=== PATIENT | female | born 1955 | race African-American/Black ===

== ENCOUNTER 2017-08-18 15:46 | Emergency (ER) | payer BC ==
[~2017-08-18] VITALS: Ht 152.4 cm; Wt 91.2 kg
[~2017-08-18 15:46] MED LIST: FLEXERIL PO; IBUPROFEN 600600 M1 PO; LOTREL 10-20 M1 EACH PO; NAPROSYN500 MG PO; NORCO 5-325 TA1 EACH PO; NORVASC5 MG PO; PRINIVIL10 MG PO; ULTRAM 50MG TAB50 MG PO; VALIUM2 MG PO
[2017-08-18] MEDS ORDERED: MOBIC7.5 MG PO (16:12)
[2017-08-18] MEDS ORDERED: NORFLEX100 MG PO (16:12)
[2017-08-18 16:45] VITALS: BP 141/95
== END 2017-08-18 16:44 | disposition home or self-care (01) ==
LOC: ER 15:46
DX: S29.012A Strain of muscle and tendon of back wall of thorax, initial encounter (principal); I10 Essential (primary) hypertension; M17.0 Bilateral primary osteoarthritis of knee; M19.012 Primary osteoarthritis, left shoulder; Z88.0 Allergy status to penicillin; Z88.5 Allergy status to narcotic agent; X50.0XXA Overexertion from strenuous movement or load, initial encounter; Y93.89 Activity, other specified; Y92.89 Other specified places as the place of occurrence of the external cause; Y99.8 Other external cause status

== ENCOUNTER 2018-02-17 04:29 | Emergency (ER) | payer BC ==
[~2018-02-17] VITALS: Ht 152.4 cm; Wt 90.7 kg
--- NOTE | ~2018-02-17 | EKG ---
[place] [address] [address] [facility] [facility] [place] [address] ELECTROCARDIOGRAM REPORT Name: JOSSELYN RAMESH Room #: DEP [place]#: [id number] Admission: 02/17/18 Attend Phys: Discharge: 02/17/18 Date of : 57 Report #: [id number] THIS REPORT FOR: //name// [facility] ED Test Date: 2018-02-17 Test Time: 04:38:09 Pat Name: JOSSELYN RAMESH Department: Room: Gender: F Doctor Osteopathic: SHIVAM : 1955 Requested By: Vincenzo Morales Order Number: [id number] MD: Lowell Arellano Measurements Intervals [place] Rate: 90 P: -2 GA: 187 QRS: -1 QRSD: 94 T: 15 QT: 363 QTc: 444 Interpretive Statements Sinus rhythm No significant abnormality Compared to ECG 04/20/2015 22:54:09 No significant change was found Electronically Signed On 02-18-2018 8:02:23 TEXTILE SCREEN MAKER by Lowell Arellano [email or web address] <ELECTRONICALLY SIGNED> By: Lowell Arellano MD, [facility] 02/18/18 0802 0438 0438 Lowell Arellano MD, FACC /EPI
[~2018-02-17 04:29] MED LIST changes: +MOBIC7.5 MG PO; +NORFLEX100 MG PO
[2018-02-17] MEDS ORDERED: AMLODIPINE BESY10 MG PO (04:38)
[2018-02-17] MEDS ORDERED: LISINOPRIL20 MG PO (04:39)
[2018-02-17] MEDS ORDERED: MOBIC15 MG PO (06:56)
[2018-02-17] MEDS ORDERED: NORCO 5-325 TA1 EACH PO (06:56)
== END 2018-02-17 07:56 | disposition home or self-care (01) ==
LOC: ER 04:29
DX: M79.602 Pain in left arm (principal); M79.89 Other specified soft tissue disorders; I10 Essential (primary) hypertension; M17.0 Bilateral primary osteoarthritis of knee; M19.012 Primary osteoarthritis, left shoulder; Z88.0 Allergy status to penicillin

== ENCOUNTER 2018-09-01 16:48 | Emergency (ER) | payer BC ==
[~2018-09-01] VITALS: Ht 152.4 cm; Wt 81.7 kg
[~2018-09-01 16:48] MED LIST changes: +AMLODIPINE BESY10 MG PO; +LISINOPRIL20 MG PO; +MOBIC15 MG PO
[2018-09-01] MEDS ORDERED: PERCOCET 7.5-31 EACH PO (17:11)
[2018-09-01 18:21] LABS: HEMATOCRIT 24.4 % (37.0-47.0); HEMOGLOBIN 8.3 gm/dL (12.0-15.0); MCH 31.1 pg (26.0-34.0); MCHC 33.8 g/dL (28.0-37.0); MCV 91.8 fL (80.0-100.0); RBC 2.66 mil/uL (4.20-5.00); RDW 21.2 % (10.5-14.5); WBC 2.1 thou/uL (4.0-11.0)
[2018-09-01 18:30] LABS: ANION GAP 9 mmol/L (7-16); BUN 19 mg/dL (7-18); CALCIUM 8.7 mg/dL (8.5-10.1); CHLORIDE 102 mmol/L (98-107); CO2 25 mmol/L (21-32); CREATININE 0.9 mg/dL (0.6-1.0); GLUCOSE 101 mg/dL (74-106); POTASSIUM 3.9 mmol/L (3.5-5.1); SODIUM 136 mmol/L (136-145)
[2018-09-01 18:36] LABS: ALBUMIN 3.3 g/dL (3.4-5.0); DIRECT BILIRUBIN 0.3 mg/dL (<0.1-0.3); TOTAL BILIRUBIN 0.8 mg/dL (<0.1-1.0); TOTAL PROTEIN 6.1 g/dL (6.4-8.2)
[2018-09-01 18:40] LABS: MAGNESIUM 1.4 mg/dL (1.8-2.4); TROPONIN-I <0.06 ng/mL (<0.06)
[2018-09-01 19:03] LABS: ABSOLUTE NEUTROPHILS 0.7 thou/uL (1.4-8.2); ANISOCYTOSIS 1+; METAMYELOCYTES 1 %; POIKILOCYTOSIS SLIGHT
[2018-09-01 19:04] LABS: OVALOCYTES OCCASIONAL; PLATELET COUNT 120 thou/uL (150-400)
[2018-09-01 20:23] LABS: URINE BILIRUBIN NEGATIVE (Negative); URINE BLOOD NEGATIVE (Negative); URINE CLARITY CLEAR; URINE COLOR YELLOW; URINE GLUCOSE-RANDOM* NEGATIVE (Negative); URINE KETONES NEGATIVE (Negative); URINE LEUKOCYTES-REFLEX TRACE (Negative); URINE NITRITE-REFLEX NEGATIVE (Negative); URINE PROTEIN (DIPSTICK) NEGATIVE (Negative); URINE SPECIFIC GRAVITY <= 1.005 (1.005-1.035); URINE UROBILINOGEN 0.2 E.U./dl (0.2-1.0)
[2018-09-01 21:02] VITALS: BP 107/68
--- NOTE | 2018-09-02 09:33 | EKG ---
[address] [place] [address] ELECTROCARDIOGRAM REPORT Name: JOSSELYN RAMESH Room #: DEP [place]#: [id number] ������������������ Admission: 09/01/18 ������������������ Attend Phys: Discharge: 09/01/18 ������������������ Date of : 57 Report #: [id number] ����������������������������������������������������������������� [id number] THIS REPORT FOR: //name// [facility] ED Test Date: 2018-09-01 Test Time: 17:24:42 Pat Name: JOSSELYN RAMESH Department: Room: Gender: F Physician Relations Representative: [id number] : 1955 Requested By: Michele Samuel Order Number: [id number] MD: Uriel Johns Measurements Intervals [place] Rate: 104 P: 18 TX: 163 QRS: -5 QRSD: 79 T: 18 QT: 322 QTc: 424 Interpretive Statements Sinus tachycardia Low voltage, precordial leads Compared to ECG 02/17/2018 04:38:09 Low QRS voltage now present Sinus rhythm no longer present Electronically Signed On 09-02-2018 9:32:50 CDT by Uriel Johns [email or web address] ��������������������������������������������� <ELECTRONICALLY SIGNED> ���������������������������������������� By: Uriel Johns MD ��������������������������������������������� 09/02/18 0932 1724 1724 MD YASMINE Portillo
== END 2018-09-01 21:02 | disposition home or self-care (01) ==
LOC: ER 16:48
PROVIDERS: Emergency Medicine
DX: R53.1 Weakness (principal); R19.7 Diarrhea, unspecified; I10 Essential (primary) hypertension; M13.812 Other specified arthritis, left shoulder; M13.869 Other specified arthritis, unspecified knee; Z88.0 Allergy status to penicillin

== ENCOUNTER 2018-09-20 19:01 | Inpatient (IN) | payer BC ==
[~2018-09-20] VITALS: Ht 152.4 cm; Wt 83.5 kg
[2018-09-20 19:01] VITALS: BP 121/76
[~2018-09-20 19:01] MED LIST changes: +PERCOCET 7.5-31 EACH PO
[2018-09-20 20:21] LABS: HEMATOCRIT 23.3 % (37.0-47.0); HEMOGLOBIN 7.8 gm/dL (12.0-15.0); MCH 31.5 pg (26.0-34.0); MCHC 33.4 g/dL (28.0-37.0); MCV 94.2 fL (80.0-100.0); PLATELET COUNT 161 thou/uL (150-400); RBC 2.47 mil/uL (4.20-5.00); RDW 19.8 % (10.5-14.5); WBC 11.7 thou/uL (4.0-11.0)
[2018-09-20 20:30] LABS: ANION GAP < 0 mmol/L (7-16); BUN 20 mg/dL (7-18); CALCIUM 9.1 mg/dL (8.5-10.1); CHLORIDE 99 mmol/L (98-107); CO2 27 mmol/L (21-32); CREATININE 0.8 mg/dL (0.6-1.0); GLUCOSE 96 mg/dL (74-106); POTASSIUM 3.3 mmol/L (3.5-5.1); SODIUM 125 mmol/L (136-145)
[2018-09-20 20:36] LABS: SGOT 32 U/L (15-37); SGPT 31 U/L (30-65); TOTAL BILIRUBIN 1.2 mg/dL (<0.1-1.0); TOTAL PROTEIN 6.1 g/dL (6.4-8.2)
[2018-09-20 20:50] LABS: ABSOLUTE NEUTROPHILS 10.3 thou/uL (1.4-8.2); METAMYELOCYTES 1 %
[2018-09-20 20:51] LABS: ANISOCYTOSIS 1+
[2018-09-20 22:03] LABS: URINE BILIRUBIN NEGATIVE (Negative); URINE BLOOD NEGATIVE (Negative); URINE CLARITY CLEAR; URINE COLOR YELLOW; URINE GLUCOSE-RANDOM* NEGATIVE (Negative); URINE KETONES NEGATIVE (Negative); URINE NITRITE-REFLEX NEGATIVE (Negative); URINE PROTEIN (DIPSTICK) NEGATIVE (Negative); URINE SPECIFIC GRAVITY 1.015 (1.005-1.035); URINE UROBILINOGEN 0.2 E.U./dl (0.2-1.0)
[2018-09-20 22:05] LABS: URINE LEUKOCYTES-REFLEX 2+ (Negative)
[2018-09-20 22:25] LABS: BACTERIA-REFLEX 1-9 Few /HPF (None Seen); CASTS None Seen /LPF (None Seen); CRYSTALS None Seen /LPF (None Seen); MUCUS None Seen strn/LPF (None Seen); SQUAMOUS 4-10 Moderate /LPF (0-3); URINE RBC None Seen /HPF (0-2); URINE WBC-REFLEX 6-15 Few /HPF (0-5)
[2018-09-20 22:26] VITALS: BP 121/76
--- NOTE | 2018-09-20 22:27 | NUR ---
HAND OFF TOOL PRINTED TO [facility]ST AT THIS TIME
[2018-09-20 23:10] VITALS: BP 136/74
[2018-09-20] MEDS ORDERED: XARELTO20 MG PO (23:42)
[2018-09-21] VITALS: BP 91/67
[2018-09-21 05:05] VITALS: BP 106/71
[2018-09-21 06:08] LABS: HEMATOCRIT 22.5 % (37.0-47.0); HEMOGLOBIN 7.6 gm/dL (12.0-15.0); MCH 31.9 pg (26.0-34.0); MCHC 33.7 g/dL (28.0-37.0); MCV 94.7 fL (80.0-100.0); RBC 2.38 mil/uL (4.20-5.00); RDW 19.6 % (10.5-14.5); WBC 6.7 thou/uL (4.0-11.0)
[2018-09-21 07:39] LABS: CREATININE 0.8 mg/dL (0.6-1.0); MAGNESIUM 2.1 mg/dL (1.8-2.4); POTASSIUM 3.8 mmol/L (3.5-5.1)
[2018-09-21 07:44] VITALS: BP 113/73
--- NOTE | 2018-09-21 07:44 | NUR ---
Received pt from ED at 2144. Pt resting in bed with family at bedside. AOX4. VSS. Pt has a left upper chest port with NS @125. Left upper extremity flaccid and swollen. X1 assist to bedside commode with walker and gait belt. Dysphagia cant swallow pill whole. Pain left shoulder. No identified needs at the moment. Will continue to monitor.
[2018-09-21 07:45] LABS: CALCIUM 8.4 mg/dL (8.5-10.1)
--- NOTE | 2018-09-21 11:04 | EKG ---
[address] [address] ELECTROCARDIOGRAM REPORT Name: JOSSELYN RAMESH Room #: 464-P ADM IN M.R.#: [id number] ������������������ Admission: 09/20/18 ������������������ Attend Phys: Joon Still MD Discharge: ������������������ Date of : 57 Report #: [id number] ����������������������������������������������������������������� [id number] THIS REPORT FOR: //name// [facility] ED Test Date: 2018-09-20 Test Time: 19:17:38 Pat Name: JOSSELYN RAMESH Department: Room: 464 Gender: F Continuous Miner: CHRISTIANO : 1955 Requested By: Lewis Lazaro Order Number: [id number] MD: Uriel Johns Measurements Intervals [place] Rate: 105 P: 2 GA: 163 QRS: -6 QRSD: 75 T: 3 QT: 319 QTc: 422 Interpretive Statements Sinus tachycardia Borderline T abnormalities, inferior leads Compared to ECG 09/01/2018 17:24:42 T-wave abnormality now present Electronically Signed On 09-21-2018 11:04:01 CDT by Uriel Johns [email or web address] ��������������������������������������������� <ELECTRONICALLY SIGNED> ���������������������������������������� By: Uriel Johns MD ��������������������������������������������� 09/21/18 1104 1917 16 Uriel Johns MD /ADAM
[2018-09-21 11:21] VITALS: BP 113/73
--- NOTE | 2018-09-21 11:59 | NUR ---
PT STABLE THROUGHOUT MORNING. PT DISCHARGED HOME. PT GIVEN DC INSTRUCTIONS, LEFT UNIT VIA WHEELCHAIR TO PRIVATE VEHICLE.
== END 2018-09-21 14:03 | disposition home or self-care (01) | DRG 641 ==
LOC: ER 19:01 → EROBS 21:43 → 4W 23:48
PROVIDERS: Nurse Practitioner; Nurse Practitioner Family; ADMIT Internal Medicine
DX: E87.1 Hypo-osmolality and hyponatremia (principal); I10 Essential (primary) hypertension; M19.012 Primary osteoarthritis, left shoulder; M17.12 Unilateral primary osteoarthritis, left knee; D64.9 Anemia, unspecified; E86.0 Dehydration; E87.6 Hypokalemia; E83.42 Hypomagnesemia; T45.1X5A Adverse effect of antineoplastic and immunosuppressive drugs, initial encounter; Y92.89 Other specified places as the place of occurrence of the external cause; Z92.21 Personal history of antineoplastic chemotherapy; Z85.3 Personal history of malignant neoplasm of breast; Z88.0 Allergy status to penicillin; Z79.899 Other long term (current) drug therapy
CPT/HCPCS: 10047

== ENCOUNTER 2018-09-24 19:08 | Emergency (ER) | payer BC ==
[~2018-09-24] VITALS: Ht 152.4 cm; Wt 80.7 kg
[~2018-09-24 19:08] MED LIST changes: +XARELTO20 MG PO
[2018-09-24 21:01] LABS: HEMATOCRIT 20.8 % (37.0-47.0); MCHC 33.8 g/dL (28.0-37.0); MCV 94.8 fL (80.0-100.0); PLATELET COUNT 71 thou/uL (150-400); RBC 2.19 mil/uL (4.20-5.00); RDW 17.9 % (10.5-14.5)
[2018-09-24 21:05] LABS: WBC 1.9 thou/uL (4.0-11.0)
[2018-09-24 21:09] LABS: CALCIUM 8.4 mg/dL (8.5-10.1); CREATININE 0.9 mg/dL (0.6-1.0); POTASSIUM 3.1 mmol/L (3.5-5.1)
[2018-09-24 21:14] LABS: TOTAL BILIRUBIN 0.7 mg/dL (<0.1-1.0); TOTAL PROTEIN 6.1 g/dL (6.4-8.2)
[2018-09-24 22:04] VITALS: BP 115/63
[2018-09-24 22:21] LABS: ABSOLUTE NEUTROPHILS 0.5 thou/uL (1.4-8.2)
[2018-09-24 22:22] LABS: ANISOCYTOSIS 1+; PLATELET ESTIMATE DECREASED; POIKILOCYTOSIS 1+
--- NOTE | 2018-09-25 08:26 | EKG ---
[facility] [address] [facility] [place] [address] ELECTROCARDIOGRAM REPORT Name: JOSSELYN RAMESH SYEDA [id number] ������������������ Admission: 09/24/18 ������������������ Attend Phys: Discharge: 09/24/18 ������������������ Date of : 57 Report #: [id number] ����������������������������������������������������������������� [id number] THIS REPORT FOR: //name// [facility] ED Test Date: 2018-09-24 Test Time: 19:32:00 Pat Name: JOSSELYN RAMESH Department: Room: Gender: F Ip Paralegal: JO : 1955 Requested By: Kia Duncan Order Number: [id number] MD: Lowell Arellano Measurements Intervals [place] Rate: 95 P: 4 DC: 169 QRS: -9 QRSD: 78 T: 34 QT: 353 QTc: 444 Interpretive Statements Sinus rhythm Early R-wave progression Compared to ECG 09/20/2018 19:17:38 Sinus tachycardia no longer present T-wave abnormality no longer present Electronically Signed On 09-25-2018 8:26:13 CDT by Lowell Arellano [email or web address] ��������������������������������������������� <ELECTRONICALLY SIGNED> ���������������������������������������� By: Lowell Arellano MD, [facility] ��������������������������������������������� 09/25/18825 31 31 Lowell Arellano MD, [facility] /EPI
== END 2018-09-24 22:22 | disposition home or self-care (01) ==
LOC: ER 19:08
PROVIDERS: Nurse Practitioner
DX: D61.818 Other pancytopenia (principal); I10 Essential (primary) hypertension; M17.0 Bilateral primary osteoarthritis of knee; M19.012 Primary osteoarthritis, left shoulder; Z85.3 Personal history of malignant neoplasm of breast; Z92.21 Personal history of antineoplastic chemotherapy; Z86.718 Personal history of other venous thrombosis and embolism; Z88.0 Allergy status to penicillin

== ENCOUNTER 2018-12-02 21:07 | Emergency (ER) | payer BC ==
[~2018-12-02] VITALS: Ht 152.4 cm; Wt 76.2 kg
[2018-12-02 22:28] LABS: HEMOGLOBIN 7.7 gm/dL (12.0-15.0)
[2018-12-02 22:29] LABS: MCH 29.2 pg (26.0-34.0); MCHC 33.4 g/dL (28.0-37.0); MCV 87.3 fL (80.0-100.0); PLATELET COUNT 151 thou/uL (150-400); RBC 2.64 mil/uL (4.20-5.00); RDW 17.7 % (10.5-14.5)
[2018-12-02 22:33] LABS: WBC 0.3 thou/uL (4.0-11.0)
[2018-12-02 22:36] LABS: ANION GAP 8 mmol/L (7-16); BUN 16 mg/dL (7-18); CALCIUM 8.5 mg/dL (8.5-10.1); CHLORIDE 100 mmol/L (98-107); CO2 29 mmol/L (21-32); CREATININE 0.7 mg/dL (0.6-1.0); GLUCOSE 92 mg/dL (74-106); POTASSIUM 3.8 mmol/L (3.5-5.1); SODIUM 137 mmol/L (136-145)
[2018-12-02 22:46] LABS: ALBUMIN 2.7 g/dL (3.4-5.0); DIRECT BILIRUBIN 0.2 mg/dL (<0.1-0.3); SGOT 10 U/L (15-37); SGPT 12 U/L (30-65); TOTAL BILIRUBIN 0.6 mg/dL (<0.1-1.0); TOTAL PROTEIN 5.9 g/dL (6.4-8.2); TROPONIN-I <0.06 ng/mL (<0.06)
[2018-12-02 23:27] LABS: PLATELET ESTIMATE NORMAL
[2018-12-02 23:28] LABS: ANISOCYTOSIS 1+; POIKILOCYTOSIS 1+
[2018-12-02 23:42] LABS: URINE BILIRUBIN NEGATIVE (Negative); URINE BLOOD 2+ (Negative); URINE CLARITY CLOUDY; URINE COLOR YELLOW; URINE GLUCOSE-RANDOM* NEGATIVE (Negative); URINE KETONES NEGATIVE (Negative); URINE NITRITE-REFLEX NEGATIVE (Negative); URINE PROTEIN (DIPSTICK) NEGATIVE (Negative); URINE SPECIFIC GRAVITY 1.015 (1.005-1.035); URINE UROBILINOGEN 0.2 E.U./dl (0.2-1.0)
[2018-12-02 23:47] LABS: URINE LEUKOCYTES-REFLEX 1+ (Negative)
[2018-12-02 23:53] LABS: BACTERIA-REFLEX 1-9 Few /HPF (None Seen); CASTS None Seen /LPF (None Seen); MUCUS 0-3 Light strn/LPF (None Seen); SQUAMOUS 0-3 Few /LPF (0-3); URINE RBC 0-2 Rare /HPF (0-2); URINE WBC-REFLEX 0-5 Rare /HPF (0-5)
[2018-12-02 23:54] LABS: AMORPHOUS URATES Moderate /LPF (None Seen); URIC ACID CRYSTALS 0-3 Few /LPF (None Seen)
[2018-12-03 02:08] VITALS: BP 126/80
--- NOTE | 2018-12-03 08:21 | EKG ---
[place] [address] [facility] [place] [address] ELECTROCARDIOGRAM REPORT Name: JOSSELYN RAMESH [facility] [id number] Admission: 12/02/18 Attend Phys: Discharge: 12/03/18 Date of : 57 Report #: [id number] THIS REPORT FOR: //name// [facility] ED Test Date: 2018-12-02 Test Time: 22:37:32 Pat Name: JOSSELYN RAMESH Department: Room: Gender: F Chlorinator Operator: : 1955 Requested By: Vincenzo Morales Order Number: [id number] MD: Lowell Arellano Measurements Intervals [place] Rate: 91 P: -10 OR: 175 QRS: 3 QRSD: 79 T: 5 QT: 340 QTc: 419 Interpretive Statements Sinus rhythm Abnormal R-wave progression, early transition Compared to ECG 09/24/2018 19:32:00 No significant changes Electronically Signed On 12-03-2018 8:21:39 CDT by Lowell Arellano [email or web address] <ELECTRONICALLY SIGNED> By: Lowell Arellano MD, [facility] 12/03/18 0821 36 Lowell Arellano MD, FACC /EPI
== END 2018-12-03 02:11 | disposition home or self-care (01) ==
LOC: ER 21:07
PROVIDERS: Emergency Medicine
DX: R53.1 Weakness (principal); I10 Essential (primary) hypertension; M17.0 Bilateral primary osteoarthritis of knee; M19.012 Primary osteoarthritis, left shoulder; Z85.3 Personal history of malignant neoplasm of breast; Z88.0 Allergy status to penicillin

== ENCOUNTER 2019-01-05 12:55 | Emergency (ER) | payer BC ==
[~2019-01-05] VITALS: Ht 152.4 cm; Wt 72.6 kg
[2019-01-05 15:42] LABS: HEMOGLOBIN 9.5 gm/dL (12.0-15.0); MCH 28.2 pg (26.0-34.0); MCHC 32.7 g/dL (28.0-37.0); MCV 86.4 fL (80.0-100.0); PLATELET COUNT 210 thou/uL (150-400); RBC 3.36 mil/uL (4.20-5.00); RDW 17.5 % (10.5-14.5); WBC 4.4 thou/uL (4.0-11.0)
[2019-01-05 16:00] LABS: CREATININE 0.9 mg/dL (0.6-1.0); POTASSIUM 4.2 mmol/L (3.5-5.1)
[2019-01-05 16:05] LABS: ALBUMIN 2.9 g/dL (3.4-5.0); TOTAL BILIRUBIN 0.3 mg/dL (<0.1-1.0); TOTAL PROTEIN 6.4 g/dL (6.4-8.2)
[2019-01-05 16:17] LABS: ABSOLUTE NEUTROPHILS 3.5 thou/uL (1.4-8.2)
[2019-01-05 16:18] LABS: ANISOCYTOSIS 1+
[2019-01-05 16:19] LABS: TEARDROPS OCCASIONAL
[2019-01-05] MEDS ORDERED: NORCO 5-325 TA1 EAC1 PO (16:33)
[2019-01-05] MEDS ORDERED: ACYCLOVIR 400400 MG PO (16:33)
[2019-01-05] MEDS ORDERED: NEURONTIN 300300 M1 PO (16:33)
[2019-01-05 16:54] VITALS: BP 134/89
== END 2019-01-05 16:55 | disposition home or self-care (01) ==
LOC: ER 12:55
PROVIDERS: Nurse Practitioner Family
DX: B02.9 Zoster without complications (principal); I10 Essential (primary) hypertension; C50.912 Malignant neoplasm of unspecified site of left female breast; M17.0 Bilateral primary osteoarthritis of knee; M19.012 Primary osteoarthritis, left shoulder; Z88.0 Allergy status to penicillin

== ENCOUNTER 2020-02-29 23:58 | Emergency (ER) | payer BC ==
[~2020-02-29] VITALS: Ht 152.4 cm; Wt 68.0 kg
[~2020-02-29 23:58] MED LIST changes: +ACYCLOVIR 400400 MG PO; +NEURONTIN 300300 M1 PO; +NORCO 5-325 TA1 EAC1 PO
[2020-03-01] MEDS ORDERED: PERCOCET 10-321 EAC1 PO (00:09)
[2020-03-01] MEDS ORDERED: LISINOPRIL20 MG PO (00:10)
[2020-03-01] MEDS ORDERED: [UNRECOGNIZED DRUG - REMARK] PO (00:10)
[2020-03-01] MEDS ORDERED: NORVASC 2.5 MG2.5 M1 PO (00:11)
[2020-03-01 00:36] LABS: ABSOLUTE NEUTROPHILS 2.5 thou/uL (1.4-8.2); BASOPHILS 0.2 % (0.0-2.0); EOSINOPHILS 0.6 % (0.0-3.0); HEMATOCRIT 31.7 % (37.0-47.0); HEMOGLOBIN 10.3 gm/dL (12.0-15.0); LYMPHOCYTES 25.4 % (24.0-44.0); MCHC 32.5 g/dL (28.0-37.0); MCV 89.3 fL (80.0-100.0); MONOCYTES 6.8 % (1.0-8.0); PLATELET COUNT 156 thou/uL (150-400); RBC 3.55 mil/uL (4.20-5.00); WBC 3.8 thou/uL (4.0-11.0)
[2020-03-01 00:39] LABS: CALCIUM 8.9 mg/dL (8.5-10.1); CREATININE 1.2 mg/dL (0.6-1.0); POTASSIUM 3.9 mmol/L (3.5-5.1)
[2020-03-01 00:45] LABS: ALBUMIN 3.5 g/dL (3.4-5.0); TOTAL BILIRUBIN 0.7 mg/dL (0.2-1.0)
[2020-03-01 02:00] LABS: URINE BLOOD NEGATIVE (Negative); URINE CLARITY CLEAR; URINE COLOR YELLOW; URINE GLUCOSE-RANDOM* NEGATIVE (Negative); URINE KETONES 3+ (Negative); URINE NITRITE-REFLEX NEGATIVE (Negative); URINE PROTEIN (DIPSTICK) NEGATIVE (Negative); URINE SPECIFIC GRAVITY >= 1.030 (1.005-1.035)
[2020-03-01 02:25] LABS: ICTOTEST (BILI CONFIRMATORY) Negative (Negative); URINE BILIRUBIN NEGATIVE (Negative); URINE LEUKOCYTES-REFLEX 2+ (Negative); URINE REDUCING SUBSTANCE 0 %
[2020-03-01 02:28] LABS: BACTERIA-REFLEX 1-9 Few /HPF (None Seen); CASTS None Seen /LPF (None Seen); CRYSTALS None Seen /LPF (None Seen); MUCUS 0-3 Light strn/LPF (None Seen); SQUAMOUS 4-10 Moderate /LPF (0-3); TRANSITIONAL EPITHEL CELL 0-3 Few /LPF (None Seen); URINE RBC 0-2 Rare /HPF (0-2)
[2020-03-01] MEDS ORDERED: ZOFRAN ODT4 MG PO (03:38)
[2020-03-01] MEDS ORDERED: KEFLEX500 M1 PO (03:39)
[2020-03-01 04:02] VITALS: BP 129/81
== END 2020-03-01 04:46 | disposition home or self-care (01) ==
LOC: ER 23:58
PROVIDERS: Emergency Medicine
DX: U07.1 COVID-19 (principal); R11.2 Nausea with vomiting, unspecified; N39.0 Urinary tract infection, site not specified; I10 Essential (primary) hypertension; Z79.899 Other long term (current) drug therapy; Z88.0 Allergy status to penicillin